=== PATIENT | female | born 1940 | race Hispanic/Latino ===

== ENCOUNTER 2019-02-02 19:04 | Emergency (ER) | payer MEDICARE ==
[2019-02-02 20:21] VITALS: BP 124/65
--- NOTE | 2019-02-02 20:47 | Emergency Department Report ---
ED General Adult HPI - General Chief complaint: Chest Pain Stated complaint: EVALUATION REQUEST BY DR Teran Seen by Provider: 02/02/19 20:37 Source: EMS Mode of arrival: Stretcher Limitations: Altered Mental Status - History of Present Illness Initial comments: Patient is 78 years old female with history of advanced COPD, dementia, depression, hyperlipidemia and chronic pain. Patient brought to the emergency room from [facility] after she was admitted 2 days ago for suicidal ideation. Patient complaining of right-sided chest pain started 4 days ago after a fall from bed. Patient denied any loss of consciousness or headache. Patient also denied any shortness of breath or left-sided chest pain. No fever or chills. Patient also denied any new weakness, numbness or tingling sensation. - Related Data Allergies Allergy/AdvReac Type Severity Reaction Status Date / Time Sulfa (Sulfonamide Allergy Itching Verified 02/02/19 20:21 Antibiotics) ED Review of Systems ROS: Stated complaint: EVALUATION REQUEST BY Other details as noted in HPI Comment: All other systems reviewed and negative Constitutional: denies: chills, fever Respiratory: denies: cough, orthopnea, shortness of breath, SOB with exertion Cardiovascular: chest pain. denies: palpitations, dyspnea on exertion, orthopnea Gastrointestinal: denies: abdominal pain, nausea, vomiting, diarrhea, constipation, hematemesis, melena, hematochezia Genitourinary: denies: urgency Musculoskeletal: denies: back pain Neurological: denies: headache, weakness, numbness, paresthesias, confusion, abnormal gait ED Past Medical Hx - Past Medical History Hx COPD: Yes Additional medical history: depression, dementia - Social History Smoking Status: Unknown if ever smoked ED Physical Exam - General Limitations: Altered Mental Status General appearance: alert, in no apparent distress - Head Head exam: Present: atraumatic, normocephalic, normal inspection - Eye Eye exam: Present: normal appearance, PERRL - ENT ENT exam: Present: normal exam, normal orophraynx, mucous membranes moist - Neck Neck exam: Present: normal inspection, full ROM. Absent: tenderness, meningismus, lymphadenopathy, thyromegaly - Respiratory Respiratory exam: Present: normal lung sounds bilaterally, chest wall tenderness. Absent: respiratory distress, wheezes, rales, rhonchi, stridor, accessory muscle use, decreased breath sounds, prolonged expiratory - Cardiovascular Cardiovascular Exam: Present: regular rate, normal rhythm, normal heart sounds - GI/Abdominal GI/Abdominal exam: Present: soft, normal bowel sounds. Absent: distended, tenderness, guarding, rebound, rigid, organomegaly, mass, bruit, pulsatile mass, hernia - Extremities Exam Extremities exam: Present: normal inspection, full ROM, normal capillary refill - Back Exam Back exam: Present: full ROM. Absent: tenderness, CVA tenderness (R), CVA tenderness (L), muscle spasm, paraspinal tenderness, vertebral tenderness - Neurological Exam Neurological exam: Present: alert, altered, CN II-XII intact - Skin Skin exam: Present: warm, intact, normal color ED Course Vital Signs 02/02/19 20:15 Temperature 98.7 F Pulse Rate 68 Respiratory 20 Rate Blood Pressure 124/65 [Left] O2 Sat by Pulse 100 Oximetry ED Medical Decision Making - Lab Data Result diagrams: 02/02/19 21:24 02/02/19 21:24 - EKG Data -: EKG Interpreted by [place] - Radiology Data Radiology results: report reviewed CT chest showed no evidence of pulmonary embolus, aortic dissection or vascular congestion. 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 Multiple well-healed fracture noted bilaterally. Additional chronic compression fracture in the upper dorsal spine. Acute to subacute obliquely oriented fracture of the manubrium of the sternum. - Medical Decision Making Patient is 78 years old female with history of advanced COPD, dementia, depression, hyperlipidemia and chronic pain. Patient brought to the emergency room from [facility] after she was admitted 2 days ago for suicidal ideation. Patient complaining of right-sided chest pain started 4 days ago after a fall from bed. Patient denied any loss of consciousness or hea dache. Patient also denied any shortness of breath or left-sided chest pain. No fever or chills. Patient also denied any new weakness, numbness or tingling sensation. Patient found to have acute to subacute obliquely oriented fracture of the manubrium of the sternum with multiple right rib fracture. I discussed the patient with Dr. Cisneros from [place] [facility]. Dr. Cisneros accepted the patient to be transferred to [place] for further evaluation. Critical care attestation.: If time is entered above; I have spent that time in minutes in the direct care of this critically ill patient, excluding procedure time. ED Disposition Clinical Impression: Chest trauma, Chest pain, Sternal fracture, Fall Disposition: [id number] ANOTHER TYPE [facility]TH[facility]ARE Is pt being admited?: No Condition: Stable Instructions: Chest Pain (ED) Referrals: PRIMARY CARE, [Primary Care Provider] - 3-5 Days
[2019-02-02 21:55] LABS: Hematocrit 31.5 % (30.3-42.9); Hemoglobin 10.5 gm/dl (10.1-14.3); Mean Corpuscular HGB Conc 33 % (30-34); Mean Corpuscular Volume 89 fl (79-97); Platelet Count 375 K/mm3 (140-440); Red Blood Count 3.55 M/mm3 (3.65-5.03); Red Cell Distribution Width 15.2 % (13.2-15.2)
[2019-02-02 22:04] LABS: INR 0.86 (0.87-1.13)
[2019-02-02 22:05] LABS: Partial Thromboplastin Time 26.7 Sec. (24.2-36.6)
[2019-02-02 22:20] LABS: BUN/Creatinine Ratio 16; Blood Urea Nitrogen 8 mg/dL (7-17); Calcium 9.4 mg/dL (8.4-10.2); Hemolysis Index 3
[2019-02-02 23:08] LABS: Eosinophils % (Manual) 0 % (0.0-4.3); Total Cells Counted 100
[2019-02-02 23:09] LABS: Anisocytosis 1+; Platelet Estimate Consistent w Auto; Poikilocytosis 1+
--- NOTE | 2019-02-02 23:39 | XRay Report ---
PROCEDURE: XR RIBS UNI W PA CHEST 3+V RT TECHNIQUE: Right rib radiographs, 3 views of the ribs, including PA chest. HISTORY: Rib pain fall chest pain COMPARISONS: None . FINDINGS: Heart: Normal . Mediastinum/Vessels: Normal . Lungs: Mild chronic obstructive pulmonary changes. No consolidation, effusion or pneumothorax . Pleural space: Normal . Pneumothorax: None . Bony thorax/ribs: There are slightly impacted fractures of the posterior aspect of the right fourth fifth and sixth ribs. Old healed fractures of the distal aspect of the right seventh eighth and ninth ribs are noted. IMPRESSION: Acute slightly impacted fractures of the posterior aspect of the right fourth fifth and sixth ribs. There is no pneumothorax. Chronic obstructive pulmonary changes are noted. This document is electronically signed by Ekta Cruz DO., February 02 2019 11:38:16 PM ET
--- NOTE | 2019-02-03 00:23 | Cat Scan Report ---
PROCEDURE: CT ANGIO CHEST TECHNIQUE: A CT angiogram was performed following the intravenous injection of iodinated contrast. R otational, sagittal, and coronal MIP reconstructions were reviewed. HISTORY: CHEST PAIN WITH ELEVATED D-DIMER COMPARISONS: Chest x-ray of 02/02/2019 FINDINGS: The lungs reveal diffuse emphysematous changes. There are no infiltrates nodules or effusions. The he art size is normal. Pericardial fluid is not seen. The thoracic aorta is normal in caliber. There is no evidence of pulmonary embolus or vascular congestion. Adenopathy is not seen. In the upper abdomen there is a 4.6 cm peripherally calcified aneurysm with mural thrombus. The skeletal structures revea l multiple well-healed right-sided rib fractures. There are several well-healed left-sided rib fractu res. There is also an acute to subacute obliquely oriented fracture of the manubrium of the sternum. At the thoracic inlet the thyroid gland appears normal. The dorsal spine reveals a kyphosis with usha ral chronic compression fractures in the upper thoracic spine. IMPRESSION: Severe emphysema. No evidence of pulmonary embolus, aortic dissection, or vascular congestion. 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 Multiple well-healed rib fractures noted bilaterally. Additional chronic compression fractures in the upper dorsal spine. Acute to subacute obliquely oriented fracture of the manubrium of the sternum.. This document is electronically signed by Babatunde Cox MD., February 03 2019 12:20:53 AM ET
[2019-02-03] MEDS ORDERED: ATROVENT IH ONE (00:35)
[2019-02-03] MEDS ORDERED: PROVENTIL IH ONE (00:35)
== END 2019-02-03 02:12 | disposition other institution (70) ==
LOC: ED 19:04
DX: S22.20XA Unspecified fracture of sternum, initial encounter for closed fracture (principal); J44.9 Chronic obstructive pulmonary disease, unspecified; F32.9 Major depressive disorder, single episode, unspecified; F03.90 Unspecified dementia, unspecified severity, without behavioral disturbance, psychotic disturbance, mood disturbance, and anxiety; X58.XXXA Exposure to other specified factors, initial encounter; Y93.89 Activity, other specified; Y92.89 Other specified places as the place of occurrence of the external cause; Y99.8 Other external cause status
CPT/HCPCS: 36415; 71101; 71275; 80048; 84484; 85007; 85025; 85379; 85610; 85730; 93005; 93010; 94640; 99285; Q9967